=== PATIENT | female | born 1955 | race Caucasian/White ===

== ENCOUNTER 2018-04-25 20:26 | Observation (INO) ==
[2018-04-26] MEDS ORDERED: Naloxone 0.4 MG/ML INJ IVP PRN ×2 (01:31→01:34)
--- NOTE | 2018-04-26 01:38 | Internal Med History&Physical ---
Date of Encounter: 04/26/18 Time of Encounter: 01:38 Internal Medicine - H&P: HPI Chief complaint: Chest Pain History of present illness: Ms. Hernandez is a 62 year old female with a past medical history of hypertension who initially presented to [facility] after having an episode of chest discomfort. Patient states that are round Wednesday while she was s itting at home she had sudden left-sided chest pain described as a squeezing sensation in addition to a sharp pain in her left mid sternal region. Pain was nonradiating, 4 out of 10 in intensity with no aggravating or alleviating factors. Denies any shortness of breath. The squeezing pain she described seemed to linger throughout the day, however the sharp pain resolved within a few seconds. Patient reports similar episodes of sharp pain on and off typically with exertion. Patient went to bed Wednesday night feeling somewhat anxious and fearful, she developed nausea and diaphoresis. On Wednesday morning patient states that she awoke and as she was getting up felt very dizzy and nauseous. She immediately had to lay down. She checked her blood pressure at home afterwards and found to be 181/110. Patient denies any fever, chills, vomiting, abdominal pain or diarrhea. She would smoking 21 years ago. Prior to that she reports a on and off history of 3 packs a day for his 7 years. Patient has not seen a physician nor has been taking any medications for the past 2 years as she does not currently have insurance. Patient had been on blood pressure medication prior. Patient reports a strong family history of heart disease reporting that her father had 7 heart attacks, and her mother had stents placed when she was 70 and 76 years of age. She does report increased stress in her life currently as her dealing with colon cancer. Patient took 3 baby Aspirin at home prior to going to the hospital. EKG showed normal sinus rhythm with no acute ischemic changes. Troponin 2 were negative. Patient did have an elevated d-dimer and a CTA was performed which was negative for pulmonary embolism. A small 3 mm subpleural nodule in the left upper lobe was noted which will need outpatient follow-up. Case was discussed with Dr. Hdez with cardiology who recommended transfer and stress testing in the morning. Patient currently chest pain-free. Past Med Surg Social Fam HX - Past Medical History Medical history: no medical history, hypertension Psychiatric history: no psych history - Past Surgical History Additional surgical history: LASIX, CARPAL TUNNEL - Social History Smoking Status: Former smoker Smokeless Tobacco Status: No Alcohol use: none Drug use: none - Family History Mother Hx Family Cardiac Disorders: Yes (Coronary artery disease with stents 2 placed) Father Hx Family Cardiac Disorders: Yes (History of coronary artery disease with 7 stents placed) Internal Medicine - H&P: Meds Lisinopril [Zestril] 20 mg PO DAILY #30 tablet 04/06/16 [Rx] Vitamin B Complex [B Complex] 1 each PO 1-2XD 04/06/16 [History] Allergy/AdvReac Type Severity Reaction Status Date / Time No Known Allergies Allergy Verified 04/06/16 22:07 All Systems PM: A 10-system review of systems was performed and is negative for pertinent findings except as documented above in the HPI. - Constitutional Constitutional: no chills, no fever(s), no night sweats - EENT Eyes: no change in vision, no discharge, no pain, no photophobia Ears: no ear discharge, no ear pain, no tinnitus Nose, mouth and throat: no dysphagia, no nasal discharge, no neck pain, no sore throat - Cardiovascular Cardiovascular ROS IM: no chest pain, no diaphoresis, no dyspnea, no lightheadedness, no palpitations, no syncope - Respiratory Respiratory: no cough, no dyspnea, no wheezing, no excessive phlegm production - Gastrointestinal Gastrointestinal: no abdominal pain, no diarrhea, no hematemesis, no hematochezia, no melena, no nausea, no vomiting - Genitourinary Genitourinary: no change in urinary stream, no dysuria, no flank pain, no hematuria - Musculoskeletal Musculoskeletal ROS IM: no numbness, no tingling - Integumentary Integumentary IM: no rash, no unusual bruising - Neurological Neurological ROS: no confusion, no convulsions, no focal weakness, no numbness, no tingling, no tremor(s) - Hematologic/Lymphatic Hematologic/Lymphatic: no easy bruising - Constitutional Vitals: Temp Pulse Resp BP Pulse Ox 98.4 F 62 16 152/74 94 04/26/18 01:30 04/26/18 01:30 04/26/18 01:30 04/26/18 01:30 04/26/18 01:30 Exam: General: Alert and oriented 3 lying in bed in no acute distress Skin:Normal color, no rash, no lesions. HEENT:EOM, pupils equal, round and reactive. Cardiovascular:Normal S1 & S2, no rubs, murmurs or gallops. No JVD. Pulse regular. Lungs:Normal breath sounds, no wheezes or crackles. Abdomen:Soft, non-tender, no rigidity. Extremities:No deformity, no edema or tenderness, no joint swelling or clubbing. Neurological:Normal cognition and motor skills. Pulses:Carotid and radial pulses normal +2. Rest of the physical exam is non contributory Internal Med - H&P Results - Labs CBC & Chem 7: 04/26/18 01:53 04/26/18 01:53 - Assessment and plan (1) Chest pain Current Visit: No Status: Acute Assessment and plan: 61 year old female with history of hypertension not currently on medications, smoking history and significant family history of coronary artery disease who initially presented to [facility] with complaints of atypical chest pain. Troponins 2 were negative. EKG showed normal sinus rhythm with no acute ischemic changes. CTA showed no evidence of PE. Patient reports taking 3 aspirin prior to going to the hospital. Chest pain appears resolved. Case discussed with cardiology who recommended transfer and stress testing with echo in the morning. -We will repeat one more troponin -Telemetry -We will obtain nuclear stress test in the morning. Keep patient nothing by mouth Qualifiers: Chest pain type: unspecified Qualified Code(s): R07.9 - Chest pain, unspecified (2) Pulmonary nodule Current Visit: Yes Status: Acute Assessment and plan: 3 mm subpleural nodule within the left upper lobe most likely a granuloma seen on CTA. -Given patient's prior smoking history will likely need CT follow-up in 12 months. (3) Hypertension Current Visit: Yes Status: Acute Assessment and plan: Current blood pressure 152/74. Reports a blood pressure of 181/110 at home. She does not regularly check her blood pressure. Patient states that she has a previous diagnosis of hypertension and has not been on any antihypertensives for the past 2 years due to lack of insurance. Patient will likely need to be back on blood pressure control. -We will monitor for now. -advisory services associate consult Qualifiers: Hypertension type: unspecified Qualified Code(s): I10 - Essential (primary) hypertension (4) DVT prophylaxis Current Visit: Yes Status: Acute Assessment and plan: Ambulate ad zain. - Time Spent With Patient Total time spent is greater than 50% in coordination of care (as documented) at patient's floor/unit and/or counseling patient:
[2018-04-26 02:04] LABS: Basophils % 0.5 %; Eosinophils # 0.2 K/mcL (0.0-0.6); Eosinophils % 2.6 %; Hematocrit 36.6 % (35.3-44.9); Hemoglobin 12.8 g/dL (11.5-15.4); Immature Granulocytes % 0.3 % (0-4); Lymphocytes # 2.9 K/mcL (0.6-4.6); Lymphocytes % 37.9 %; Mean Corpuscular Hemoglobin 31.4 pg (28.0-33.3); Mean Corpuscular Volume 89.9 fL (83.0-100.0); Mean Platelet Volume 9.4 fL (9.4-12.4); Monocytes # 0.8 K/mcL (0.0-1.3); Monocytes % 10.1 %; Neutrophils # 3.7 K/mcL (1.6-8.9); Platelet Count 250 K/mcL (140-400); Red Blood Count 4.07 M/mcL (3.82-4.97); Red Cell Distribution Width 11.9 % (11.5-14.5); Segmented Neutrophils % 48.6 %
[2018-04-26 02:13] LABS: INR 0.9; Prothrombin Time 10.5 Seconds (9.4-12.1)
[2018-04-26 02:25] LABS: Alanine Aminotransferase 20 Units/L (7-52); Albumin 4.3 g/dL (3.5-5.7); Albumin/Globulin Ratio 1.4 (1.1-2.2); Alkaline Phosphatase 61 Units/L (34-104); Aspartate Amino Transferase 19 Units/L (13-39); BUN/Creatinine Ratio 23 (6-26); Bilirubin,Total 0.4 mg/dL (0.3-1.0); Blood Urea Nitrogen 17 mg/dL (8-23); Calcium 9.4 mg/dL (8.6-10.3); Carbon Dioxide 27 mEq/L (23-29); Chloride 98 mEq/L (98-107); Chol/HDL Ratio 5.5 (0-4.9); Cholesterol 254 mg/dL (< 200); Globulin 3.1 g/dL (2.4-3.5); Glucose 103 mg/dL (70-105); HDL Cholesterol 46 mg/dL (40-59); LDL Cholesterol,Calculated 180 mg/dL (0-99); Magnesium 2.1 mg/dL (1.6-2.6); Osmolality,Calculated 284 (280-300); Potassium 3.7 mEq/L (3.5-5.1); Sodium 136 mEq/L (136-145); Total Protein 7.4 g/dL (6.4-8.9); Triglycerides 138 mg/dL (< 150); eGFR For Non-African Americans > 60 (> 60)
[2018-04-26] MEDS ORDERED: Regadenoson 0.4 MG/5 ML SYRINGE IVP ONE (08:20)
[2018-04-26] MEDS ORDERED: Acetaminophen 325 MG TABLET PO ONE (11:00)
[2018-04-26 12:19] VITALS: BP 132/69
--- NOTE | 2018-04-26 15:25 | Discharge Summary ---
- NOTES TO OUTPATIENT PROVIDER Notes to Outpatient Provider: 3 mm subpleural nodule within the left upper lobe most likely a granuloma seen on CTA. Given patient's prior smoking history will likely need CT follow-up in 12 months. Orders not resulted at time of discharge: Pending orders 04/26/18 01:34 NM clifford perf SPECT multi [NM] Routine Date of Encounter: 04/26/18 Time of Encounter: 15:00 - Discharge Diagnosis (1) Chest pain Priority: Primary Status: Acute Qualifiers: Chest pain type: unspecified Qualified Code(s): R07.9 - Chest pain, unspecified (2) Pulmonary nodule Priority: Secondary Status: Acute Assessment and Plan: 3 mm subpleural nodule within the left upper lobe most likely a granuloma seen on CTA. -Given patient's prior smoking history will likely need CT follow-up in 12 months. (3) Hypertension Priority: Primary Status: Acute Qualifiers: Hypertension type: unspecified Qualified Code(s): I10 - Essential (primary) hypertension Hospital course: Patient is a 61-year-old female with past medical history significant for hypertension who presented to [facility] due to chest discomfort. Patient stated that she developed sudden left-sided chest pain described as a squeezing sensation in addition to a sharp pain in her left mid sternal region. Pain was nonradiating, 4 out of 10 in intensity with no aggravating or alleviating factors. Denies any shortness of breath. The squeezing pain she described seemed to linger throughout the day, however the sharp pain resolved within a few seconds. Patient reports similar episodes of sharp pain on and off typically with exertion. Patient went to bed Wednesday night feeling somewhat anxious and fearful, she developed nausea and diaphoresis. On Wednesday morning patient states that she awoke and as she was getting up felt very dizzy and nauseous. She immediately had to lay down. She checked her blood pressure at home afterwards and found to be 181/110. Patient took 3 baby Aspirin at home prior to going to the hospital. EKG showed normal sinus rhythm with no acute ischemic changes. Troponin 2 were negative. Patient did have an elevated d-dimer and a CTA was performed which was negative for pulmonary embolism. During her hospital stay patients troponins were negative and nuclear medicine stress test was done which was negative for ischemia echocardiogram was also done which showed LVEF of 65-70% with normal ventricular diastolic function. She was started on losartan and will be discharged to follow-up with primary care provider for hypertension management. - Time Spent with Patient Total time spent providing and/or coordinating discharge services: Less than 30 minutes - Discharge Medications Prescriptions: Losartan [Cozaar] 25 mg PO DAILY #30 tablet Home Medications: Vitamin B Complex [B Complex] 1 each PO 1-2XD 04/06/16 [History] Losartan [Cozaar] 25 mg PO DAILY #30 tablet 04/26/18 [Rx] Allergies/Adverse Reactions: Allergy/AdvReac Type Severity Reaction Status Date / Time No Known Allergies Allergy Verified 04/06/16 22:07 Date of admission: 04/26/18 01:19 Primary care physician: PCP NONE Consults: 04/26/18 02:38 Consult to Sample Tailor [CONS] Routine Reason for SW Consult: Patient does not have insurance and has been off her antihypertensives for 2 years - Constitutional Vitals: Temp Pulse Resp BP Pulse Ox 98 F 70 16 132/69 95 04/26/18 11:17 04/26/18 11:17 04/26/18 11:17 04/26/18 11:17 04/26/18 11:17 Exam: Gen.: Nonacute distress, alert and oriented 3 Skin: Normal color - Patient Status Disposition: Home, Self-Care - Discharge Instructions Instructions: Chest Pain (DC), Chronic Hypertension (DC) Follow Up With: Arthur Leonard [Resident] - 05/04/18 3:00 pm (If you do not receive your new patient packet in the mail, please arrive 1/2 hour early. Please bring packet with you, if you do receive it. You will need to bring your photo ID, insurance card and any medications you are on. If you need to cancel, please give a 24 hour notice. Thank you)
== END 2018-04-26 16:01 | disposition home or self-care (01) ==
LOC: 3ANU
PROVIDERS: ADMIT Internal Medicine; ATTEND Internal Medicine